=== PATIENT | male | born 1965 | race African-American/Black ===

== ENCOUNTER 2018-08-02 08:32 | Emergency (ER) | payer OTHER ==
[~2018-08-02] VITALS: Ht 180.3 cm; Wt 136.1 kg
[2018-08-02] MEDS ORDERED: LASIX 20 MG TAB20 MG PO (08:52)
[2018-08-02] MEDS ORDERED: KLOR-CON 1010 MEQ PO (08:52)
[2018-08-02] MEDS ORDERED: LISINOPRIL10 MG PO (08:52)
[2018-08-02] MEDS ORDERED: CLONIDINE HCL0.2 M2 PO (08:52)
[2018-08-02] MEDS ORDERED: PAIN RELIEF PM1 EAC2 PO (08:53)
[2018-08-02 09:20] LABS: HEMATOCRIT 45.6 % (42.0-52.0); HEMOGLOBIN 15.5 gm/dL (14.0-18.0); MCH 32.2 pg (26.0-34.0); MCV 94.9 fL (80.0-100.0); RBC 4.81 mil/uL (4.50-6.00); RDW 14.9 % (10.5-14.5); WBC 5.8 thou/uL (4.0-11.0)
[2018-08-02 09:25] LABS: URINE BILIRUBIN NEGATIVE (Negative); URINE BLOOD NEGATIVE (Negative); URINE CLARITY CLEAR; URINE COLOR YELLOW; URINE GLUCOSE-RANDOM* NEGATIVE (Negative); URINE KETONES TRACE (Negative); URINE LEUKOCYTES-REFLEX TRACE (Negative); URINE NITRITE-REFLEX NEGATIVE (Negative); URINE PROTEIN (DIPSTICK) NEGATIVE (Negative); URINE UROBILINOGEN 0.2 E.U./dl (0.2-1.0)
[2018-08-02 09:26] LABS: AMP/METHAMP Negative (Negative); BARBITURATES Negative (Negative); BENZODIAZEPINES Negative (Negative); COCAINE Negative (Negative); METHADONE Negative (Negative); OPIATES Negative (Negative); PCP Negative (Negative)
[2018-08-02 09:29] LABS: ANION GAP 9 mmol/L (7-16); BUN 8 mg/dL (7-18); CALCIUM 9.5 mg/dL (8.5-10.1); CHLORIDE 102 mmol/L (98-107); CO2 27 mmol/L (21-32); CREATININE 1.2 mg/dL (0.7-1.3); GLUCOSE 86 mg/dL (74-106); POTASSIUM 3.4 mmol/L (3.5-5.1); SALICYLATE < 2.8 mg/dL (2.8-20.0); SODIUM 138 mmol/L (136-145)
[2018-08-02 12:20] VITALS: BP 135/80
[2018-08-05 19:07] LABS: TRICYCLIC (TCA) CONFIRMATION Negative ng/mL (Cutoff=100)
== END 2018-08-02 12:36 | disposition home or self-care (01) ==
LOC: ER 08:32
PROVIDERS: Emergency Medicine
DX: T46.5X2A Poisoning by other antihypertensive drugs, intentional self-harm, initial encounter (principal); Y92.9 Unspecified place or not applicable; G47.00 Insomnia, unspecified